=== PATIENT | male | born 1975 | race Caucasian/White ===

== ENCOUNTER → 2016-10-23 21:35 | Emergency (ER) | payer OTHER ==
[~2016-10-23 21:35] MED LIST: ALBUTEROL17 GM INH; BLOOD PRESSURE MED; DURAGESIC TOP; DYAZIDE 37.5/251 CAP PO; FENTORA PO; HCTZ PO; METHADONE PO; NO MEDICATIONS; NORCO 10/325 TA1 TAB PO; NORVASC PO; NORVASC10 MG PO; OXYCONTIN PO; PERCOCET10 PO; PROTONIX PO; TETRACYCLINE PO; WALGREENS PHARMACY; ZYVOX PO
== END | disposition left against medical advice (07) ==
LOC: CED 21:35
DX: Z53.21 Procedure and treatment not carried out due to patient leaving prior to being seen by health care provider (principal)